=== PATIENT | female | born 1980 | race Hispanic/Latino ===

== ENCOUNTER 2018-08-31 15:18 | Emergency (ER) | payer BC, SELFPAY ==
[2018-08-31 18:55] LABS: Protime INR 1.05
[2018-08-31 19:15] LABS: ALT/SGPT 75 U/L (12-78); AST/SGOT 19 U/L (15-37); Albumin 3.8 g/dL (3.4-5.0); Alkaline Phosphatase 76 U/L (45-117); BUN Blood Urea Nitrogen 14 mg/dL (7-18); Bicarbonate 29 mmol/L (21-32); Bilirubin Direct 0.1 mg/dL (0-0.2); Bilirubin Total 0.4 mg/dL (0.2-1.0); Glucose Level 95 mg/dL (74-106); Magnesium 2.2 mg/dL (1.8-2.4); NT PRO-BNP 27 pg/mL (<125); Potassium 3.7 mmol/L (3.5-5.1); Protein, Total 8.2 g/dL (6.4-8.2); Sodium Level 140 mmol/L (136-145); Troponin (Emerg Dept Use Only) < 0.02 ng/mL (0.0-0.045)
--- NOTE | 2018-08-31 19:26 | RAD REPORT ---
EXAM DESCRIPTION: Aleyda Single View08/31/2018 6:47 pm CLINICAL HISTORY: Chest pain COMPARISON: none FINDINGS: The lungs appear clear of acute infiltrate. The heart is normal size IMPRESSION: No acute abnormalities displayed
--- NOTE | 2018-08-31 20:39 | RAD REPORT ---
EXAM DESCRIPTION: CT - Chest For Pe Angio - 08/31/2018 8:22 pm CLINICAL HISTORY: Chest pain COMPARISON: None. TECHNIQUE: Dynamically enhanced axial 3 mm thick images of the chest were obtained during administra tion of <100> mL Isovue 370 IV contrast. Coronal and oblique reconstruction images were generated and reviewed. Exam utilizes a protocol for optimal evaluation of pulmonary arterial tree. Maximum intensity projections 3D imaging was utilized All CT scans are performed using dose optimization technique as appropriate and may include automated exposure control or mA/KV adjustment according to patient size. FINDINGS: A pulmonary embolus is not seen. A thoracic aortic aneurysm is not noted. A pleural effusion is not seen. A pericardial effusion is not seen. A lung consolidation is not present. Fatty liver IMPRESSION: Negative for a pulmonary embolism.
--- NOTE | 2018-08-31 21:27 | ER ---
Nurse's Notes [facility] Name: Jjuu Bryan Age: 38 yrs Sex: Female : 1980 Arrival Date: 08/31/2018 Time: 15:21 Bed 20 Private MD: Ricky Javier Diagnosis: Chest pain, unspecified Presentation: 08/31 15:28 Presenting complaint: Patient states: Intermittent left upper chest pain that radiates hb to left shoulder and left arm x 3 days, heartburn since this morning. Denies SOB. Transition of care: patient was not received from another setting of care. Onset of symptoms was August 28, 2018. Risk Assessment: Do you want to hurt yourself or someone else? Patient reports no desire to harm self or others. Care prior to arrival: None. 15:28 Method Of Arrival: Ambulatory hb 15:28 Acuity: TC 3 hb 18:47 Initial Sepsis Screen: Does the patient meet any 2 criteria? No. Patient's initial ls4 sepsis screen is negative. Does the patient have a suspected source of infection? No. Patient's initial sepsis screen is negative. Triage Assessment: 17:40 General: Appears in no apparent distress. Behavior is calm, cooperative. Pain: ls4 Complains of pain in anterior aspect of left upper chest. Cardiovascular: Reports chest pain. 17:40 EENT: No deficits noted. Neuro: No deficits noted. Respiratory: Airway is patent ls4 Respiratory effort is even, unlabored, Respiratory pattern is regular. GI: No deficits noted. : No deficits noted. Derm: No deficits noted. Musculoskeletal: No deficits noted. 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 - Social history:: Smoking status: Patient/guardian denies using tobacco. - Ebola Screening: : No symptoms or risks identified at this time. Screenin:50 Abuse screen: Denies threats or abuse. Denies injuries from another. Nutritional ls4 screening: No deficits noted. Tuberculosis screening: No symptoms or risk factors identified. Fall Risk None identified. Assessment: 18:45 Also complains of no other symptoms. Pain: Pain radiates to left arm Pain began ls4 gradually, 2-3 days ago. Neuro: No deficits noted. Cardiovascular: No deficits noted. Respiratory: No deficits noted. GI: No deficits noted. : No deficits noted. Derm: No deficits noted. Musculoskeletal: No deficits noted. Vital Signs: 15:30 BP 137 / 72; Pulse 76; Resp 16; Temp 98.2; Pulse Ox 100% on R/A; Weight 94.35 kg; hb Height 5 ft. (152.40 cm); Pain 6/10; 17:30 BP 136 / 100; Pulse 81; Resp 16; Temp 98.4(O); Pulse Ox 99% on R/A; Pain 3/10; ls4 19:55 BP 130 / 98; Pulse 71; Resp 16; Pulse Ox 99% on R/A; Pain 3/10; ls4 15:30 Body Mass Index 40.62 (94.35 kg, 152.40 cm) hb ED Course: 15:21 Patient arrived in ED. rg4 15:21 Ricky Javier MD is Private Physician. rg4 15:30 Triage completed. hb 15:30 Arm band placed on right wrist. hb 15:37 EKG completed in triage. Results shown to MD. hb 16:03 EKG done, by dairy technologist. dt2 16:05 Inserted saline lock: 20 gauge in right antecubital area, using aseptic technique. ls4 Blood collected. 16:05 Initial lab(s) drawn, by dc, sent to lab. X-ray(s) taken. ls4 17:46 Marvin Chin PA [facility] 17:46 Chaitanya Mckinney MD is Attending Physician. jmm 17:50 Yazmin Harvey, RN is Primary Nurse. ls4 17:50 Patient has correct armband on for positive identification. Side rails up X 1. Cardiac ls4 monitor on. Pulse ox on. NIBP on. 17:50 No provider procedures requiring assistance completed. Patient maintains SpO2 ls4 saturation greater than 95% on room air. 18:49 XRAY Chest (1 view) In Process Unspecified. EDMS 20:23 CT Chest For PE Angio In Process Unspecified. EDMS 21:27 Ricky Javier MD is Referral Physician. [facility] 21:27 Hemanth Sapp MD is Referral Physician. jmm 21:50 IV discontinued, intact, bleeding controlled, No redness/swelling at site. Pressure ls4 dressing applied. Administered Medications: No medications were administered Outcome: 21:27 Discharge ordered by MD. abdirashid 21:50 Discharged to home ambulatory, with family. ls4 21:50 Condition: good 21:50 Discharge instructions given to patient, family, Instructed on discharge instructions, follow up and referral plans. medication usage, safety practices, Demonstrated understanding of instructions, follow-up care, medications. 21:58 Patient left the ED. ls4 Signatures: Dispatcher [employer] EDMS Marvin Chin PA PA jmm Baxter, Heather, RN RN Christine Banks 4 Mandy Carlin dt2 Yazmin Harvey RN RN ls4 Corrections: (The following items were deleted from the chart) 22:01 22:00 Patient did not have IV access during this emergency room visit. ls4 ls4
--- NOTE | 2018-08-31 21:28 | EDPHYS ---
Physician Documentation [facility] Name: Juju Bryan Age: 38 yrs Sex: Female : 1980 Arrival Date: 08/31/2018 Time: 15:21 Bed 20 Private MD: Ricky Javier ED Physician Chaitanya Mckinney HPI: 08/31 18:27 This 38 yrs old Female presents to ER via Ambulatory with complaints of Chest jmm Pain, Arm Pain. 18:27 The patient or guardian reports chest pain that is located primarily in the substernal jmm area. Onset: gradually, 3 day(s) ago. The pain radiates to the left arm. The chest pain is described as aching. Duration: The patient or guardian reports multiple episodes. Modifying factors: The symptoms are alleviated by nothing. the symptoms are aggravated by nothing. This is a 38 year old female with no chronic medical conditions that presents to the ED with chest pain which radiates to the left arm for the past 3 days. Pain has been constant since this morning. Denies injury, Denies fever. Denies hemoptysis. 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 - Social history:: Smoking status: Patient/guardian denies using tobacco. - Ebola Screening: : No symptoms or risks identified at this time. ROS: 18:27 Constitutional: Negative for fever, chills, and weight loss. jmm 18:27 Respiratory: Negative for shortness of breath, cough, wheezing, and pleuritic chest pain, Abdomen/GI: Negative for abdominal pain, nausea, vomiting, diarrhea, and constipation, Skin: Negative for injury, rash, and discoloration, Neuro: Negative for headache, weakness, numbness, tingling, and seizure. 18:27 Cardiovascular: Positive for chest pain. 18:27 Respiratory: 18:27 All other systems are negative. Exam: 18:27 Constitutional: This is a well developed, well nourished patient who is awake, alert, jmm and in no acute distress. Head/Face: atraumatic. Eyes: EOMI, no conjunctival erythema appreciated ENT: Moist Mucus Membranes Neck: Trachea midline, Supple 18:27 Back: Normal ROM Skin: General appearance color normal MS/ Extremity: Moves all extremities, no obvious deformities appreciated, no edema noted to the lower extremities Neuro: Awake and alert, normal gait Psych: Behavior is normal, Mood is normal, Patient is cooperative and pleasant 18:27 Chest/axilla: Inspection: normal, Palpation: tenderness, that is moderate, of the anterior aspect of left upper chest, that does not reproduce the patient's complaints. 18:27 Cardiovascular: Rate: normal, Rhythm: regular, Pulses: no pulse deficits are appreciated. 18:27 Respiratory: the patient does not display signs of respiratory distress, Respirations: normal, Breath sounds: are clear throughout. 18:27 Abdomen/GI: Inspection: abdomen appears normal, Bowel sounds: normal, Palpation: abdomen is soft and non-tender, in all quadrants. Vital Signs: 15:30 BP 137 / 72; Pulse 76; Resp 16; Temp 98.2; Pulse Ox 100% on R/A; Weight 94.35 kg; hb Height 5 ft. (152.40 cm); Pain 6/10; 17:30 BP 136 / 100; Pulse 81; Resp 16; Temp 98.4(O); Pulse Ox 99% on R/A; Pain 3/10; ls4 19:55 BP 130 / 98; Pulse 71; Resp 16; Pulse Ox 99% on R/A; Pain 3/10; ls4 15:30 Body Mass Index 40.62 (94.35 kg, 152.40 cm) hb MDM: 18:19 Patient medically screened. [facility] 21:25 PADDY Risk Score: TOTAL SCORE = 0. Data reviewed: vital signs, nurses notes, lab test [facility] result(s), radiologic studies, CT scan. Data interpreted: Pulse oximetry: on room air is 99 %. Interpretation: normal. ED course: CTA chest negative. Patient has low risk factors for acs. patient advised to follow up with cardio or pcp for reevaluation. patient is otherwise given strict return precautions. patient understood and agrees with the plan of care. . 08/31 18:20 Order name: Basic Metabolic Panel; Complete Time: 19:18 [facility] 08/31 18:20 Order name: CBC with Diff; Complete Time: 20:42 [facility] 08/31 18:20 Order name: LFT's; Complete Time: 19:18 [facility] 08/31 18:20 Order name: Magnesium; Complete Time: 19:18 [facility] 08/31 18:20 Order name: NT PRO-BNP; Complete Time: 19:18 [facility] 08/31 18:20 Order name: PT-INR; Complete Time: 19:18 [facility] 08/31 17:48 Order name: EKG Electrocardiogram; Complete Time: 18:43 [facility] 08/31 18:20 Order name: Troponin (emerg Dept Use Only); Complete Time: 19:18 [facility] 08/31 18:20 Order name: XRAY Chest (1 view); Complete Time: 19:30 [facility] 08/31 18:20 Order name: Cardiac monitoring; Complete Time: 18:42 [facility] 08/31 18:20 Order name: EKG - Nurse/Tech; Complete Time: 18:42 [facility] 08/31 19:56 Order name: Troponin (emerg Dept Use Only); Complete Time: 21:14 [facility] 08/31 19:56 Order name: CT Chest For PE Angio; Complete Time: 20:42 [facility] 08/31 18:20 Order name: IV Saline Lock; Complete Time: 18:42 [facility] 08/31 18:20 Order name: Labs collected and sent; Complete Time: 18:42 [facility] 08/31 18:20 Order name: O2 Per Protocol; Complete Time: 18:43 [facility] 08/31 18:20 Order name: O2 Sat Monitoring; Complete Time: 18:43 jmm Administered Medications: No medications were administered Disposition: 08/31/18 21:27 Discharged to Home. Impression: Chest pain, unspecified. - Condition is Stable. - Discharge Instructions: Nonspecific Chest Pain. - Medication Reconciliation Form, Thank You Letter, Antibiotic Education, Prescription Opioid Use form. - Follow up: Ricky Javier MD; When: 2 - 3 days; Reason: Recheck today's complaints, Continuance of care, Re-evaluation by your physician. Follow up: Hemanth Sapp MD; When: 2 - 3 days; Reason: Recheck today's complaints, Continuance of care, Re-evaluation by your physician. Addendum: 09/07/2018 09:31 Co-signature as Attending Physician, Chaitanya Mckinney MD I agree with the assessment and k dr plan of care. Signatures: Dispatcher [employer] EDMS Chaitanya Mckinney MD MD kdr Mickail, Joel, PA PA jmm Baxter, Heather, JOSE RN Yazmin Sellers RN RN ls4 Corrections: (The following items were deleted from the chart) 08/31 21:58 21:27 08/31/2018 21:27 Discharged to Home. Impression: Chest pain, unspecified. ls4 Condition is Stable. Forms are Medication Reconciliation Form, Thank You Letter, Antibiotic Education, Prescription Opioid Use. Follow up: Ricky Javier; When: 2 - 3 days; Reason: Recheck today's complaints, Continuance of care, Re-evaluation by your physician. Follow up: Hemanth Sapp; When: 2 - 3 days; Reason: Recheck today's complaints, Continuance of care, Re-evaluation by your physician. abdirashid
--- NOTE | 2018-09-01 14:03 | EKG ---
Test Date: 2018-08-31 Test Time: 15:36:40 Escort Blind: CAMILLA MEASUREMENT RESULTS: Intervals: Rate: 74 DC: 148 QRSD: 94 QT: 368 QTc: 408 Spring: P: 48 DC: 148 QRS: 49 T: 34 INTERPRETIVE STATEMENTS: Normal sinus rhythm Normal ECG No previous ECG available for comparison Electronically Signed On 09-01-18 13:59:08 OPERATOR VACUUM by Hemanth Sapp
== END 2018-08-31 21:58 | disposition home or self-care (01) ==
LOC: ER 15:18
DX: R07.9 Chest pain, unspecified (principal); K76.0 Fatty (change of) liver, not elsewhere classified
CPT/HCPCS: 36415; 71045; 71275; 80048; 80076; 83735; 83880; 84484; 85025; 85610; 93005; Q9967